=== PATIENT | male | born 1960 | race Caucasian/White ===

== ENCOUNTER → 2016-09-05 | Outpatient (CLI) | payer BC ==
[~2016-09-05] MED LIST: NOMEDS XX
--- NOTE | 2016-09-05 11:30 | RADIOLOGY REPORT PS360 ---
CHEST(2 VIEWS-NOT PORTABLE) HISTORY: Shortness of breath, weakness, hoarseness and dizziness SOB COMPARISON: 01/03/2015 FINDINGS: The cardiomediastinal silhouette and pulmonary vascularity are within normal limits. Medium-sized hiatal hernia noted. No lobar consolidation or collapse. No acute bony anomalies. IMPRESSION: Hiatal hernia, no change with no acute finding..
[2016-09-05 16:57] LABS: BUN 18 mg/dL (7-18); PROSTATE-SPECIFIC AG SCREEEN 3.6 ng/mL (0.0-4.0)
[2016-09-05 17:24] LABS: HEMOGLOBIN 6.9 g/dL (14.1-18.0)
[2016-09-05 17:29] LABS: LYMPH # 1.1 K/mm3 (0.7-4.5); LYMPH % 14.2 % (10-50)
[2016-09-05 17:40] LABS: GFR (ESTIMATED) 70 ML/MIN (>60)
[2016-09-07 08:45] LABS: Folate (Folic Acid) 16.3 ng/mL (>3.0); Vitamin D, 25-Hydroxy 23.9 ng/mL (30.0-100.0)
== END ==
LOC: LAB 10:57 → RAD 10:57
PROVIDERS: Physician Assistant
DX: R06.02 Shortness of breath (principal); R53.83 Other fatigue; D50.9 Iron deficiency anemia, unspecified; E55.9 Vitamin D deficiency, unspecified
CPT/HCPCS: G0103

== ENCOUNTER → 2016-09-10 | Outpatient (CLI) | payer BC ==
[2016-09-10 16:06] LABS: LYMPH # 1.4 K/mm3 (0.7-4.5); LYMPH % 22.4 % (10-50)
[2016-09-10 16:22] LABS: HEMOGLOBIN 11.5 g/dL (14.1-18.0)
== END ==
LOC: LAB 15:21
PROVIDERS: Nurse Practitioner Family
DX: K92.2 Gastrointestinal hemorrhage, unspecified (principal)

== ENCOUNTER → 2016-09-20 | Outpatient (CLI) | payer BC ==
[2016-09-20 14:44] LABS: HEMOGLOBIN 11.2 g/dL (14.1-18.0); LYMPH # 1.4 K/mm3 (0.7-4.5); LYMPH % 22.2 % (10-50)
== END ==
LOC: LAB 13:55
PROVIDERS: Physician Assistant
DX: D64.9 Anemia, unspecified (principal)

== ENCOUNTER → 2016-10-02 | Outpatient (CLI) | payer BC ==
--- NOTE | 2016-10-02 13:12 | RADIOLOGY REPORT PS360 ---
SMALL BOWEL SERIES CLINICAL INDICATION: ANEMIA ORDERING PHYSICIAN: Chevy Reynoso MD PATIENT AGE: 55 years Fluoroscopy time, 57 seconds COMPARISON: None FINDINGS: Small bowel has an unremarkable appearance. No dilatation, mucosal thickening, or obstruction is evident. Spot views of the terminal ileum are unremarkable. No small bowel mass. IMPRESSION: Negative small bowel series
== END ==
LOC: RAD 08:30
DX: D64.9 Anemia, unspecified (principal); K92.1 Melena

== ENCOUNTER → 2016-11-09 | Outpatient (CLI) | payer BC ==
[2016-11-09 14:23] LABS: HEMOGLOBIN 9.5 g/dL (14.1-18.0); LYMPH % 20.4 % (10-50)
== END ==
LOC: CARL-LAB 09:50
PROVIDERS: Physician Assistant
DX: D50.9 Iron deficiency anemia, unspecified (principal)

== ENCOUNTER 2016-12-18 08:54 | Outpatient (CLI) | payer BC ==
[2016-12-18 09:30] VITALS: BP 122/70
[2016-12-18 10:00] VITALS: BP 130/70
[2016-12-18 10:15] VITALS: BP 118/70
== END 2016-12-18 10:30 | disposition home or self-care (01) ==
LOC: COP 08:54
DX: D50.9 Iron deficiency anemia, unspecified (principal)
CPT/HCPCS: J1756

== ENCOUNTER 2017-01-01 08:30 | Outpatient (CLI) | payer BC ==
[2017-01-01 09:07] VITALS: BP 143/82
[2017-01-01 09:37] VITALS: BP 142/71
[2017-01-01 10:15] VITALS: BP 134/77
== END 2017-01-01 10:20 | disposition home or self-care (01) ==
LOC: COP 08:30
DX: D50.9 Iron deficiency anemia, unspecified (principal); K92.2 Gastrointestinal hemorrhage, unspecified
CPT/HCPCS: J1756

== ENCOUNTER 2017-01-22 08:20 | Outpatient (CLI) | payer BC ==
[2017-01-22 08:52] VITALS: BP 148/87
[2017-01-22 09:22] VITALS: BP 142/81
[2017-01-22 10:03] VITALS: BP 144/88
== END 2017-01-22 10:08 | disposition home or self-care (01) ==
LOC: COP 08:20
DX: D50.9 Iron deficiency anemia, unspecified (principal); K92.2 Gastrointestinal hemorrhage, unspecified
CPT/HCPCS: J1756

== ENCOUNTER 2017-04-11 14:08 | Emergency (ER) | payer BC ==
[~2017-04-11] VITALS: Ht 170.2 cm; Wt 107.5 kg
--- NOTE | 2017-04-11 14:41 | Emergency Room Report ---
History of Present Illness Time Seen by MD Rodriguez Presenting Problem in Triage Pt arrived:Walked Presenting Problem[facility]. 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 N Clinical Suspician of Infection? N Mental Status: 1 - Regular (Normal Baseline) Sepsis Risk:Low Sepsis Risk Have you (or family members/close friends) recently traveled outside the [place]? N If Yes, where/when: Have you had exposure to infectious disease within the past month? TB? Other? Specify: Patient reports a hx of chronic anemia requiring transfusion in past; followed by Dr. Anand; has hx GI bleed. Reports bloating x one month. 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 Moved bowels today and has "dark stools". States also having pain with exertion intermittently for the past two weeks, no chest pain today. No SOB and no cough. Has some generalized weakness. No urinary sx. No abdominal pain. No vomiting, no hematemesis, no BRBPR, reports weight gain; no night sweats. ALLERGIES Coded Allergies: ceftriaxone (Mild, BODY ACHES 04/04/16) Home Medications Reported Medications No Home Medications (NO HOME MEDICATIONS) 1 EACH XX ONCE History Medical History General CAD? No Angina: No [place]: No Hypertension? Yes Hyperlipidemia? No CHF? No DVT? No PE? No COPD? No Asthma? No Anemia? No GERD? No Gastric ulcers? Yes GI Bleed? No Hernia? Yes Thyroid Problems? No Hypothyroidism? No CVA? No Seizures? No Diabetes? No Renal Insuffiency? No End Stage Renal Disease? No UTI? No Stones? No BPH? No GB Disease: No Nephritic Syndrome? No Asplenia? No Hepatitis? No Sickle Cell Disease? No Arthritis? No Migraines? No Cataracts? No Glaucoma? No MRSA? No HIV? No TB? No Anxiety? No Depression? No Cancer? No More? No Immunization Hx DT/Tetanus Unknown Flu Refused Pneumonia Never Had Surgical Hx Previous Surgery?Y COLONOSCOPY EGD CYST REMOVED FROM BACK Family History Family Hx Diabetes No CAD No Hypertension No Hyperlipidemia No Cancer Yes TB No Social History Smoking Hx Smoker: Never Smoker Tobacco: No Alcohol Alcohol: No Review of Systems All Other Systems Reviewed and Negative Cardiovascular see HPI Gastrointestinal see HPI Physical Exam Vital Signs Vital Signs Date Time Temp Pulse Resp B/P Pulse O2 O2 Flow FiO2 Ox Delivery Rate 04/11 1516 69 20 118/85 96 04/11 1420 98.0 68 20 140/99 96 General Appearance normal appearance, WD/WN, no apparent distress Eye Exam - bilateral eye normal exam, bilateral eye PERRL, bilateral eye EOMI Neck normal inspection, non-tender, supple, full range of motion Respiratory Status Yes: trachea midline, chest symmetrical, non tender chest. No: respiratory distress, tender on palpation, use of accessory muscles, pain on inspiration, pain on expiration, productive cough, non productive cough. Lung Sounds bilateral: normal breath sounds, lungs clear. Cardiovascular normal exam, regular rate/rhythm, no peripheral edema, no gallop, no JVD, no murmur, no rub, normal peripheral pulses Gastrointestinal normal bowel sounds, normal exam, non tender, soft, no organomegaly, no pulsatile mass, no guarding, no rebound Extremities non-tender, normal range of motion, normal inspection, normal capillary refill, no calf tenderness, no pedal edema Strength 5 Upper Ext (L), 5 Upper Ext (R), 5 Lower Ext (L), 5 Lower Ext (R) Rectal normal exam, normal rectal tone (nl prostate no obvious blood), card to lab Nurse present during exam? Yes Neurologic alert, normal exam, no motor/sensory deficits, oriented x 3 Glascow Coma Scale Glascow Coma Scale Response Value EYE response: 4 Spontaneously 4 MOTOR response: 6 OBEYS 6 VERBAL response: 5 Oriented & Converses 5 Total 15 Skin intact, normal color, warm/dry Medical Decision Making LABS/Meds/Orders Pt receiving controlled substance in ED? No Results/Orders Laboratory Tests 04/11/17 1515: Stool Occult Blood POSITIVE 04/11/17 1445: Lipase 201 04/11/17 1445: Sodium 139, Potassium 4.5, Chloride 101, Carbon Dioxide 29, BUN 17, Creatinine 1.0, Estimated Creat Clear 127, Estimated GFR (MDRD) 78, Glucose 92, Calcium 8.9 , Total Bilirubin 0.3, AST 24, ALT 40, Alkaline Phosphatase 54, Creatine Kinase 102, CK-MB (CK-2) Rel Index 0.6, CK and CKMB Interp 0.6, Troponin I < 0.02, Total Protein 8.3 H, Albumin 4.2, Globulin 4.1 H, Albumin/Globulin Ratio 1.0 L, WBC 6.7, RBC 5.34, Hgb 14.5, Hct 45.0, MCV 84.3, RDW 16.5, Plt Count 306, MPV 7.1 L, Gran % 58.8, Gran # 3.9, Lymphocytes % 29.2, Monocytes % 7.5, Eosinophils % 4.0, Basophils % 0.6, Lymphocytes # 1.9, Monocytes # 0.5, Eosinophils # 0.3, Basophils # 0.0, PUBS MCHC 32.3, MCH 27.2 Current Medication Orders Sig/Marcos Start time Last Medication Dose Route Stop Time Status Admin Sodium Chloride 10 ML PRN PRN 04/11 1430 AC IV 04/12 1429 Orders Procedure Date/time Status DIET-NOTHING BY MOUTH 04/[address] ABD/PELVIS REQ 04/11 1443 Active STOOL OCCULT BLOOD 04/11 1441 Complete LIPASE 04/11 1431 Complete 12 LEAD EKG-BESSON (INITIAL) 04/11 1430 Active ELECTROCARDIOGRAM REQUEST 04/11 1429 Active IV SALINE LOCK 04/11 1429 Active CBC WITH AUTO DIFF 04/11 1429 Complete CARDIAC ENZYMES 04/11 1429 Complete CHEM 12 PROFILE 04/11 1429 Complete CM/EKG CM/EKG EKG rate, NSR, rhythm, no evid. of ischemic chgs, no ectopy, normal QRS, normal CO, normal EKG (NSR 67;) XRAY/CT/US XRAY/CT/US CT abdomen, pelvis CT interpretation by reviewed by me (report reviewed) Time results known: 1526 CT Results normal/NAD (cholelithiasis) Consult Physician Consult Time Called 1528 Comments courtesy call to PCP Departure Departure Time of Disposition 1526 Disposition DC Home or Self Care(routine) Clinical Impression Primary Impression: Cholelithiasis Condition STABLE Referrals Edgardo LANE,Maia June APRN (Family) PATTI LANE,SHARIF Rogel Patient Instructions Gallstones Additional Instructions You are not anemic, but there is blood in your stool. Recommend close follow up with surgeon of choice as you have gallstones. Recommend low fat diet, and also see Eugonda in one to four days for recheck. Discharge Counseling Counseled pt/family regarding diagnosis, test results, medications/RX, home care, follow up needs ED Critical Care Critical Care No If Critical Care minutes are documented, the time involved in the performance of seperately reportable procedures was not counted toward critical care time documented. I directly delivered medical care to this critically ill and/or injured patient. Timely evaluation and treatment was necessary to address the significant organ system(s) dysfunction present in this patient. at 2115
--- NOTE | 2017-04-11 14:41 | Emergency Room Report ---
History of Present Illness Time Seen by MD Rodriguez Presenting Problem in Triage Pt arrived:Walked [facility]ing Problem[facility]. 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 N Clinical Suspician of Infection? N Mental Status: 1 - Regular (Normal Baseline) Sepsis Risk:Low Sepsis Risk Have you (or family members/close friends) recently traveled outside the [place]? N If Yes, where/when: Have you had exposure to infectious disease within the past month? TB? Other? Specify: Patient reports a hx of chronic anemia requiring transfusion in past; followed by Dr. Anand; has hx GI bleed. Reports bloating x one month. 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 Moved bowels today and has "dark stools". States also having pain with exertion intermittently for the past two weeks, no chest pain today. No SOB and no cough. Has some generalized weakness. No urinary sx. No abdominal pain. No vomiting, no hematemesis, no BRBPR, reports weight gain; no night sweats. ALLERGIES Coded Allergies: ceftriaxone (Mild, BODY ACHES 04/04/16) Home Medications Reported Medications No Home Medications (NO HOME MEDICATIONS) 1 EACH XX ONCE History Medical History General CAD? No Angina: No [place]: No Hypertension? Yes Hyperlipidemia? No CHF? No DVT? No PE? No COPD? No Asthma? No Anemia? No GERD? No Gastric ulcers? Yes GI Bleed? No Hernia? Yes Thyroid Problems? No Hypothyroidism? No CVA? No Seizures? No Diabetes? No Renal Insuffiency? No End Stage Renal Disease? No UTI? No Stones? No BPH? No GB Disease: No Nephritic Syndrome? No Asplenia? No Hepatitis? No Sickle Cell Disease? No Arthritis? No Migraines? No Cataracts? No Glaucoma? No MRSA? No HIV? No TB? No Anxiety? No Depression? No Cancer? No More? No Immunization Hx DT/Tetanus Unknown Flu Refused Pneumonia Never Had Surgical Hx Previous Surgery?Y COLONOSCOPY EGD CYST REMOVED FROM BACK Family History Family Hx Diabetes No CAD No Hypertension No Hyperlipidemia No Cancer Yes TB No Social History Smoking Hx Smoker: Never Smoker Tobacco: No Alcohol Alcohol: No Review of Systems All Other Systems Reviewed and Negative Cardiovascular see HPI Gastrointestinal see HPI Physical Exam Vital Signs Vital Signs Date Time Temp Pulse Resp B/P Pulse O2 O2 Flow FiO2 Ox Delivery Rate 04/11 1516 69 20 118/85 96 04/11 1420 98.0 68 20 140/99 96 General Appearance normal appearance, WD/WN, no apparent distress Eye Exam - bilateral eye normal exam, bilateral eye PERRL, bilateral eye EOMI Neck normal inspection, non-tender, supple, full range of motion Respiratory Status Yes: trachea midline, chest symmetrical, non tender chest. No: respiratory distress, tender on palpation, use of accessory muscles, pain on inspiration, pain on expiration, productive cough, non productive cough. Lung Sounds bilateral: normal breath sounds, lungs clear. Cardiovascular normal exam, regular rate/rhythm, no peripheral edema, no gallop, no JVD, no murmur, no rub, normal peripheral pulses Gastrointestinal normal bowel sounds, normal exam, non tender, soft, no organomegaly, no pulsatile mass, no guarding, no rebound Extremities non-tender, normal range of motion, normal inspection, normal capillary refill, no calf tenderness, no pedal edema Strength 5 Upper Ext (L), 5 Upper Ext (R), 5 Lower Ext (L), 5 Lower Ext (R) Rectal normal exam, normal rectal tone (nl prostate no obvious blood), card to lab Nurse present during exam? Yes Neurologic alert, normal exam, no motor/sensory deficits, oriented x 3 Glascow Coma Scale Glascow Coma Scale Response Value EYE response: 4 Spontaneously 4 MOTOR response: 6 OBEYS 6 VERBAL response: 5 Oriented & Converses 5 Total 15 Skin intact, normal color, warm/dry Medical Decision Making LABS/Meds/Orders Pt receiving controlled substance in ED? No Results/Orders Laboratory Tests 04/11/17 1515: Stool Occult Blood POSITIVE 04/11/17 1445: Lipase 201 04/11/17 1445: Sodium 139, Potassium 4.5, Chloride 101, Carbon Dioxide 29, BUN 17, Creatinine 1.0, Estimated Creat Clear 127, Estimated GFR (MDRD) 78, Glucose 92, Calcium 8.9 , Total Bilirubin 0.3, AST 24, ALT 40, Alkaline Phosphatase 54, Creatine Kinase 102, CK-MB (CK-2) Rel Index 0.6, CK and CKMB Interp 0.6, Troponin I < 0.02, Total Protein 8.3 H, Albumin 4.2, Globulin 4.1 H, Albumin/Globulin Ratio 1.0 L, WBC 6.7, RBC 5.34, Hgb 14.5, Hct 45.0, MCV 84.3, RDW 16.5, Plt Count 306, MPV 7.1 L, Gran % 58.8, Gran # 3.9, Lymphocytes % 29.2, Monocytes % 7.5, Eosinophils % 4.0, Basophils % 0.6, Lymphocytes # 1.9, Monocytes # 0.5, Eosinophils # 0.3, Basophils # 0.0, PUBS MCHC 32.3, MCH 27.2 Current Medication Orders Sig/Marcos Start time Last Medication Dose Route Stop Time Status Admin Sodium Chloride 10 ML PRN PRN 04/11 1430 AC IV 04/12 1429 Orders Procedure Date/time Status DIET-NOTHING BY MOUTH 04/[address] ABD/PELVIS REQ 04/11 1443 Active STOOL OCCULT BLOOD 04/11 1441 Complete LIPASE 04/11 1431 Complete 12 LEAD EKG-BESSON (INITIAL) 04/11 1430 Active ELECTROCARDIOGRAM REQUEST 04/11 1429 Active IV SALINE LOCK 04/11 1429 Active CBC WITH AUTO DIFF 04/11 1429 Complete CARDIAC ENZYMES 04/11 1429 Complete CHEM 12 PROFILE 04/11 1429 Complete CM/EKG CM/EKG EKG rate, NSR, rhythm, no evid. of ischemic chgs, no ectopy, normal QRS, normal NC, normal EKG (NSR 67;) XRAY/CT/US XRAY/CT/US CT abdomen, pelvis CT interpretation by reviewed by me (report reviewed) Time results known: 1526 CT Results normal/NAD (cholelithiasis) Consult Physician Consult Time Called 1528 Comments courtesy call to PCP Departure Departure Time of Disposition 1526 Disposition DC Home or Self Care(routine) Clinical Impression Primary Impression: Cholelithiasis Condition STABLE Referrals Edgardo LANE,Maia June APRN (Family) PATTI LANE,SHARIF Rogel Patient Instructions Gallstones Additional Instructions You are not anemic, but there is blood in your stool. Recommend close follow up with surgeon of choice as you have gallstones. Recommend low fat diet, and also see Eugonda in one to four days for recheck. Discharge Counseling Counseled pt/family regarding diagnosis, test results, medications/RX, home care, follow up needs ED Critical Care Critical Care No If Critical Care minutes are documented, the time involved in the performance of seperately reportable procedures was not counted toward critical care time documented. I directly delivered medical care to this critically ill and/or injured patient. Timely evaluation and treatment was necessary to address the significant organ system(s) dysfunction present in this patient. at [id number]
[2017-04-11 15:00] LABS: HEMOGLOBIN 14.5 g/dL (14.1-18.0); LYMPH # 1.9 K/mm3 (0.7-4.5); LYMPH % 29.2 % (10-50)
[2017-04-11 15:18] LABS: BUN 17 mg/dL (7-18); GFR (ESTIMATED) 78 ML/MIN (>60)
--- NOTE | 2017-04-11 15:22 | RADIOLOGY REPORT PS360 ---
CT ABD PELVIS W/O CONTRAST CLINICAL INDICATION: BLOATING, DARK STOOLS, decreased appetite ORDERING PHYSICIAN: Kateryna Galindo MD PATIENT AGE: 56 years COMPARISON: None TECHNIQUE: Axial images obtained with sagittal and coronal reformats. PROCEDURE: Oral Contrast: None IV Contrast: None . FINDINGS: There is a moderate sized hiatal hernia. The liver, spleen, adrenal glands, and pancreas have an unremarkable appearance without contrast. A gallstone is present. No biliary dilatation apparent. There is a 6.5 cm complex left renal cyst with some calcification along the posterior aspect of the cyst. No obstructing renal or ureteral calculi. No intestinal obstruction or free air. Unremarkable appendix. No evidence of diverticulitis. There is a small left inguinal hernia containing fat. IMPRESSION: 1. Cholelithiasis. 2. Hiatal hernia. 3. 6.5 cm complex left renal cyst. Recommend follow-up outpatient exam without and with contrast with renal protocol.
[2017-04-11 15:23] LABS: STOOL OCCULT BLOOD POSITIVE (NEG)
--- NOTE | 2017-04-11 15:23 | RADIOLOGY REPORT PS360 ---
CHEST(2 VIEWS-NOT PORTABLE) HISTORY: CHEST PAIN ORDERING PHYSICIAN: Kateryna Galindo MD PATIENT AGE: 56 years COMPARISON: 09/05/2016 FINDINGS: The cardiomediastinal silhouette and pulmonary vascularity are within normal limits. The lungs are clear without infiltrates, suspicious nodules, or pleural effusions. No acute bony abnormalities. There is a medium-sized hiatal hernia IMPRESSION: Hiatal hernia otherwise negative, no change from 09/05/2016
[2017-04-11 15:47] VITALS: BP 118/85
== END 2017-04-11 15:48 | disposition home or self-care (01) ==
LOC: ER 14:08
PROVIDERS: Emergency Medicine
DX: K80.20 Calculus of gallbladder without cholecystitis without obstruction (principal); D64.9 Anemia, unspecified; I10 Essential (primary) hypertension
CPT/HCPCS: G0328

== ENCOUNTER → 2017-05-15 | Outpatient (CLI) | payer BC ==
[~2017-05-15] MED LIST changes: +CITRUCEL479 GM; +MIRALAX(PO17 GM/1 PA; +[UNRECOGNIZED DRUG - OTHER]
--- NOTE | 2017-05-15 11:46 | RADIOLOGY REPORT PS360 ---
US [id number] HISTORY: LT RENAL COMPLEX CYST ORDERING PHYSICIAN: David Mendieta MD PATIENT AGE: 56 years COMPARISON: None FINDINGS: RIGHT KIDNEY:Unremarkable. Normal size and echogenicity. No hydronephrosis. 8.5 x 5.3 x 6.3 cm. Mild cortical thinning LEFT KIDNEY:12 x 6 x 6 cm. There is a 6 x 5 cm cyst along the upper pole of the left kidney with a peripheral septation. No solid mass evident.. No hydronephrosis. Normal size and echogenicity. OTHER FINDINGS: No other pertinent findings IMPRESSION: 6 cm complex left renal cyst. Consider 6 month follow-up to confirm stability
== END ==
LOC: RAD 09:26
DX: N28.1 Cyst of kidney, acquired (principal)

== ENCOUNTER → 2017-07-19 | Outpatient (CLI) | payer BC ==
[2017-07-19 10:04] LABS: HEMOGLOBIN 10.1 g/dL (14.1-18.0); LYMPH % 30.6 % (10-50)
== END ==
LOC: LAB 09:34
PROVIDERS: Surgery
DX: D64.9 Anemia, unspecified (principal); R06.02 Shortness of breath